=== PATIENT | female | born 1955 | race Caucasian/White ===

== ENCOUNTER 2017-08-26 12:33 | Emergency (ER) | payer OTHER ==
[~2017-08-26] VITALS: Ht 167.6 cm; Wt 74.8 kg
[2017-08-26 12:56] LABS: BASO % 0.2 % (0.0-1.0); EOS # 0.2 10*3/uL (0.0-0.4); EOS % 2.3 % (1.0-4.0); HEMATOCRIT 43.5 % (37.0-47.0); HEMOGLOBIN 14.9 g/dl (12.0-16.0); LYMPH # 3.1 10*3/uL (1.3-4.4); LYMPH % 33.5 % (27.0-41.0); MEAN CELL VOLUME 83.7 fl (81.0-99.0); MEAN CORPUSCULAR HGB 28.7 pg (27.0-31.0); MEAN CORPUSCULAR HGB CONC 34.3 g/dl (33.0-37.0); MEAN PLATELET VOLUME 12.1 fl (9.6-12.3); MONO # 0.5 10*3/uL (0.1-1.0); MONO % 5.8 % (3.0-9.0); NEUT # 5.4 10*3/uL (2.3-7.9); NEUT % 57.8 % (47.0-73.0); PLATELET COUNT AUTOMATED 295 10*3/uL (130-400); RED CELL DISTRI WIDTH 12.4 % (0-14.5); WHITE BLOOD COUNT 9.3 10*3/uL (4.8-10.8)
[2017-08-26 13:04] LABS: ACT PARTIAL THROMBO TIME 23.1 SECONDS (20.8-31.5)
[2017-08-26 13:09] LABS: BUN 22 mg/dl (7-24); CHLORIDE 104 mmol/L (98-107); CREATININE 0.75 mg/dL (0.55-1.02); POTASSIUM 3.4 mmol/L (3.5-5.1); SODIUM 138 mmol/L (136-145)
[2017-08-26] MEDS ORDERED: EPIPEN 2-P0.3 MG/0.3 IJ (14:55)
[2017-08-26] MEDS ORDERED: CLARITIN10 MG PO (14:55)
[2017-08-26] MEDS ORDERED: MEDROL DOSEPAK4 MG PO (14:55)
[2017-08-26] MEDS ORDERED: PEPCID20 MG PO (14:55)
== END 2017-08-26 16:58 | disposition home or self-care (01) ==
LOC: ED 12:33
PROVIDERS: Emergency Medicine
DX: T63.481A Toxic effect of venom of other arthropod, accidental (unintentional), initial encounter (principal); T78.2XXA Anaphylactic shock, unspecified, initial encounter; X58.XXXA Exposure to other specified factors, initial encounter; Z88.2 Allergy status to sulfonamides